=== PATIENT | female | born 1975 | race Caucasian/White ===

== ENCOUNTER 2016-10-25 12:43 | Emergency (ER) | payer MEDICARE ==
[2016-10-25 12:52] VITALS: BP 119/101
[2016-10-25 14:48] LABS: ABSOLUTE LYMPHOCYTES (AUTO) 2.1 10^3/uL (0.5-4.7); ABSOLUTE MONOCYTES (AUTO) 0.5 10^3/uL (0.1-1.4); ABSOLUTE NEUT (AUTO) 6.2 10^3/uL (1.7-8.2); BASOPHILS % (AUTO) 0.5 % (0-2); EOSINOPHILS % (AUTO) 0.3 % (0-6); HEMATOCRIT 28.8 % (36.0-47.0); HEMOGLOBIN 8.4 g/dL (12.0-15.5); HGB HCT DIFFERENCE -3.6; MEAN CORPUSCULAR HEMOGLOBIN 18.6 pg (27.0-33.4); MEAN CORPUSCULAR HGB CONC 29.3 g/dL (32.0-36.0); MONOCYTES % (AUTO) 5.3 % (3-13); RED BLOOD COUNT 4.52 10^6/uL (3.72-5.28); RED CELL DISTRIBUTION WIDTH 21.4 % (11.5-14.0); SEGMENTED NEUTROPHILS % (AUTO) 69.9 % (42-78); WHITE BLOOD COUNT 8.9 10^3/uL (4.0-10.5)
[2016-10-25 14:54] LABS: AMORPHOUS SEDIMENT,URINE 2+ /HPF
[2016-10-25 15:01] LABS: ALANINE AMINOTRANSFERASE 33 U/L (9-52); ALBUMIN 4.4 g/dL (3.5-5.0); ALKALINE PHOSPHATASE 111 U/L (38-126); ANION GAP 14 (5-19); ASPARTATE AMINO TRANSFERASE 19 U/L (14-36); BILIRUBIN,DIRECT 0.3 mg/dL (0.0-0.4); BILIRUBIN,TOTAL 0.3 mg/dL (0.2-1.3); BLOOD UREA NITROGEN 14 mg/dL (7-20); CALCIUM 9.9 mg/dL (8.4-10.2); CARBON DIOXIDE 23 mmol/L (22-30); CHLORIDE 105 mmol/L (98-107); CREATININE RESULT 0.73 mg/dL (0.52-1.25); GLUCOSE 95 mg/dL (75-110); POTASSIUM 3.9 mmol/L (3.6-5.0); SODIUM 141.9 mmol/L (137-145); TOTAL PROTEIN 7.7 g/dL (6.3-8.2)
[2016-10-25 15:11] LABS: APPEARANCE,URINE TURBID; BILIRUBIN,URINE NEGATIVE (NEGATIVE); GLUCOSE, URINE NEGATIVE (NEGATIVE); KETONES,URINE TRACE mg/dL (NEGATIVE); LEUKOCYTE ESTERASE,URINE NEGATIVE (NEGATIVE); NITRITE,URINE NEGATIVE (NEGATIVE); PROTEIN,URINE NEGATIVE (NEGATIVE); URINE SPECIFIC GRAVITY 1.035
[2016-10-25 15:17] LABS: ANISOCYTOSIS 2+; HYPOCHROMASIA 2+; MICROCYTOSIS 3+; POLYCHROMASIA SLIGHT
[2016-10-25 15:18] LABS: MEAN CORPUSCULAR VOLUME 64 fl (80-97)
--- NOTE | 2016-10-25 15:29 | ER Document Report ---
ED Medical Screen (RME) - General Chief Complaint: Abdominal Pain Stated Complaint: ABDOMINAL PAIN Time Seen by Provider: 10/25/16 14:06 Mode of Arrival: Ambulatory Information source: Patient Notes: Patient states she has left lower quadrant pain. It is sharp and severe. It is constant. She states she has this pain due to an ovarian cyst that she has previously been diagnosed with. No new symptoms. No vaginal bleeding or discharge. No vomiting or diarrhea. Nothing makes the pain better or worse. The pain does radiate to her back. No dysuria urgency or frequency. TRAVEL OUTSIDE OF THE [place] IN LAST 30 DAYS: No - Related Data Allergies/Adverse Reactions: cephalexin [From Keflex] Allergy (Verified 10/25/16 12:51) Penicillins Allergy (Verified 10/25/16 12:51) sulfamethoxazole [From Bactrim] Allergy (Verified 10/25/16 12:51) tomato Allergy (Verified 10/25/16 12:51) trimethoprim [From Bactrim] Allergy (Verified 10/25/16 12:51) ziprasidone [From Geodon] Allergy (Verified 10/25/16 12:51) Past Medical History - General Information source: Patient - Social History Cigarette use (# per day): No Chew tobacco use (# tins/day): No Frequency of alcohol use: None Drug Abuse: None Family history: Reviewed & Not Pertinent Renal/ Medical History: Denies: Hx Peritoneal Dialysis Review of Systems - Review of Systems Constitutional: denies: Chills, Fever Cardiovascular: denies: Chest pain, Palpitations Respiratory: denies: Cough, Short of breath -: Yes All other systems reviewed and negative Physical Exam - Vital signs Vitals: Temp Pulse Resp BP Pulse Ox 98.0 F 102 H 18 119/101 H 100 10/25/16 12:49 10/25/16 12:49 10/25/16 12:49 10/25/16 12:49 10/25/16 12:49 Interpretation: Hypertensive - General General appearance: Appears well, Alert - HEENT Head: Normocephalic, Atraumatic Eyes: Normal Pupils: PERRL - Respiratory Respiratory status: No respiratory distress Chest status: Nontender Breath sounds: Normal Chest palpation: Normal - Cardiovascular Rhythm: Regular Heart sounds: Normal auscultation Murmur: No - Abdominal Inspection: Normal Distension: No distension Bowel sounds: Normal Tenderness: Tender Organomegaly: No organomegaly - Back Back: Normal, Nontender - Extremities General upper extremity: Normal inspection, Nontender, Normal color, Normal ROM , Normal temperature General lower extremity: Normal inspection, Nontender, Normal color, Normal ROM , Normal temperature, Normal weight bearing. No: Leslie's sign - Neurological Neuro grossly intact: Yes Cognition: Normal Orientation: AAOx4 [place] Coma Scale Eye Opening: Spontaneous [place] Coma Scale Verbal: Oriented [place] Coma Scale Motor: Obeys Commands [place] Coma Scale Total: 15 Speech: Normal Motor strength normal: LUE, RUE, LLE, RLE Sensory: Normal - Psychological Associated symptoms: Normal affect, Normal mood - Skin Skin Temperature: Warm Skin Moisture: Dry Skin Color: Normal Course - Vital Signs Vital signs: Temp Pulse Resp BP Pulse Ox 98.0 F 102 H 18 119/101 H 100 10/25/16 12:49 10/25/16 12:49 10/25/16 12:49 10/25/16 12:49 10/25/16 12:49 - Laboratory Result Diagrams: 10/25/16 14:26 10/25/16 14:26 Laboratory results interpreted by me: 10/25/16 10/25/16 12:50 14:26 Hgb 8.4 L Hct 28.8 L MCV 64 L MCH 18.6 L MCHC 29.3 L RDW 21.4 H Urine Ketones TRACE H Urine Urobilinogen 2.0 H Urine Ascorbic Acid 20 H Doctor's Discharge - Discharge Clinical Impression: Acute abdominal pain in left lower quadrant Condition: Stable Disposition: HOME, SELF-CARE Instructions: Abdominal Pain ([facility]), Oral Narcotic Medication ([facility]) Additional Instructions: Please call [facility] to arrange follow-up as soon as possible. Prescriptions: Oxycodone HCl/Acetaminophen [Percocet 5-325 mg Tablet] 1 - 2 tab PO Q4H PRN #25 tablet PRN Reason: Forms: Elevated Blood Pressure Referrals: CHRISTINE ESCOBAR MD [ACTIVE STAFF] - Follow up as needed
== END 2016-10-25 15:45 | disposition home or self-care (01) ==
LOC: ER 12:43
DX: R10.32 Left lower quadrant pain (principal); Z88.0 Allergy status to penicillin; Z88.3 Allergy status to other anti-infective agents
CPT/HCPCS: 36415; 80053; 81001; 81025; 85025; 99284

== ENCOUNTER 2017-07-27 11:29 | Emergency (ER) | payer MEDICARE ==
[2017-07-27 11:34] VITALS: BP 109/86
--- NOTE | 2017-07-27 11:41 | ER Document Report ---
ED General - General Chief Complaint: Cough Stated Complaint: COUGH/DIFFICULTY BREATHING Time Seen by Provider: 07/27/17 11:35 Notes: 42-year-old female here with 2 weeks of cough productive of white sputum congestion runny nose sore throat shortness of breath wheezing vomiting (only after coughing) and diarrhea. She has been using her pro-air inhaler which has helped with the wheezing. She visited her son in [place] and they were all 6 that she believes she contracted the illness from them. Immunizations up-to- date. She does not smoke. TRAVEL OUTSIDE OF THE [place] IN LAST 30 DAYS: No - Related Data Allergies/Adverse Reactions: cephalexin [From Keflex] Allergy (Verified 07/27/17 11:31) Penicillins Allergy (Verified 07/27/17 11:31) sulfamethoxazole [From Bactrim] Allergy (Verified 07/27/17 11:31) tomato Allergy (Verified 07/27/17 11:31) trimethoprim [From Bactrim] Allergy (Verified 07/27/17 11:31) ziprasidone [From Geodon] Allergy (Verified 07/27/17 11:31) Past Medical History - Social History Smoking Status: Unknown if Ever Smoked Family History: Reviewed & Not Pertinent Renal/ Medical History: Denies: Hx Peritoneal Dialysis Review of Systems - Review of Systems Notes: See history of present illness for pertinent positive review of systems; otherwise all review of systems have been reviewed and are negative Physical Exam - Vital signs Vitals: Temp Pulse Resp BP Pulse Ox 97.9 F 82 18 109/86 H 97 07/27/17 11:33 07/27/17 11:33 07/27/17 11:33 07/27/17 11:33 07/27/17 11:33 - Notes Notes: PHYSICAL EXAMINATION: GENERAL: Well-appearing and in no acute distress. HEAD: Atraumatic, normocephalic. EYES: Pupils equal round and reactive to light, extraocular movements intact, sclera anicteric, conjunctiva are normal. ENT: nares patent, oropharynx clear without exudates. Moist mucous membranes. No tonsillar swelling or exudates NECK: Normal range of motion, supple without lymphadenopathy LUNGS: CTAB and equal. No wheezes rales or rhonchi. HEART: Regular rate and rhythm without murmurs ABDOMEN: Soft, no tenderness. No facial grimacing/wincing upon palpation. No guarding, no rebound. EXTREMITIES: Normal range of motion, no pitting edema. No cyanosis. NEUROLOGICAL: Cranial nerves grossly intact. Normal sensory/motor exams. PSYCH: Normal mood, normal affect. SKIN: Warm, Dry, normal turgor, no rashes or lesions noted Course - Re-evaluation Re-evalutation: 07/27/17 11:40 MEDICAL DECISION MAKING: Concern for upper respiratory infection, most likely viral Prednisone/azithromycin for asthma exacerbation and presumed bronchitis Instructed patient on fever control with Tylenol and/or (if applicable) Motrin Also discussed keeping hydrated with water or Gatorade/Pedialyte Instructed follow-up PCP next day or few Patient understands and agrees to the plan of care - Vital Signs Vital signs: Temp Pulse Resp BP Pulse Ox 97.9 F 82 18 109/86 H 97 07/27/17 11:33 07/27/17 11:33 07/27/17 11:33 07/27/17 11:33 07/27/17 11:33 Discharge - Discharge Clinical Impression: Acute URI Condition: Good Disposition: HOME, SELF-CARE Additional Instructions: You were seen in the emergency department at [facility]. Finish the steroids and antibiotics for respiratory infection. Use the pro-air as needed for wheezing shortness of breath. Please followup with your primary physician in the next few days for further management/evaluation. Please return to the emergency department for worsening of symptoms or any symptom that you deem to be concerning or life-threatening. Thank you for allowing us to be part of your care. Prescriptions: Azithromycin [Zithromax 250 mg Tablet] 250 mg PO ASDIR PRN #6 tablet PRN Reason: Prednisone [Deltasone 20 mg Tablet] 3 tab PO DAILY 5 Days tablet
== END 2017-07-27 11:40 | disposition home or self-care (01) ==
LOC: ER 11:29
DX: J06.9 Acute upper respiratory infection, unspecified (principal); Z88.0 Allergy status to penicillin; Z88.3 Allergy status to other anti-infective agents
CPT/HCPCS: 99283

== ENCOUNTER 2017-08-03 20:16 | Emergency (ER) | payer MEDICARE ==
[2017-08-03] MEDS ORDERED: OXYCODONE-ACETAMINOPHEN 5-325 MG TABLET PO ONE (20:54)
--- NOTE | 2017-08-03 20:54 | ER Document Report ---
ED GI/ - General Chief Complaint: Abdominal Pain Stated Complaint: ABDOMINAL PAIN, PELVIC PAIN Time Seen by Provider: 08/03/17 20:38 Mode of Arrival: Ambulatory Information source: Patient TRAVEL OUTSIDE OF THE [place] IN LAST 30 DAYS: No - HPI Patient complains to provider of: Abdominal pain, Pelvic pain Onset: This afternoon Timing/Duration: Gradual, Constant, Persistent Quality of pain: Dull Severity at maximum: Moderate Severity in ED: Moderate Context: denies: Bad food, Lifting, Out of the country travel, , Recent trauma Location: LLQ - LESS, RLQ - MORE Vaginal bleeding (Compared to normal period): Spotting Menstrual period history: denies: Missed - Related Data Allergies/Adverse Reactions: cephalexin [From Keflex] Allergy (Verified 07/27/17 11:31) Penicillins Allergy (Verified 07/27/17 11:31) sulfamethoxazole [From Bactrim] Allergy (Verified 07/27/17 11:31) tomato Allergy (Verified 07/27/17 11:31) trimethoprim [From Bactrim] Allergy (Verified 07/27/17 11:31) ziprasidone [From Geodon] Allergy (Verified 07/27/17 11:31) Past Medical History - General Information source: Patient - Social History Smoking Status: Never Smoker Cigarette use (# per day): No Chew tobacco use (# tins/day): No Frequency of alcohol use: None Drug Abuse: None Lives with: Spouse/Significant other Family History: Reviewed & Not Pertinent Patient has suicidal ideation: No Patient has homicidal ideation: No - Past Medical History Cardiac Medical History: Reports: None Pulmonary Medical History: Reports: Hx Asthma EENT Medical History: Reports: None Neurological Medical History: Reports: None Endocrine Medical History: Reports: None Renal/ Medical History: Reports: Hx Ovarian Cysts - BILATERAL, Other - ENDOMETRIOSIS. Denies: Hx Peritoneal Dialysis Malignancy Medical History: Reports: None GI Medical History: Reports: None Musculoskeltal Medical History: Reports None Psychiatric Medical History: Reports: Hx Bipolar Disorder Past Surgical History: Reports: Hx Section, Hx Tubal Ligation Review of Systems - Review of Systems Constitutional: No symptoms reported. denies: Chills, Fever EENT: No symptoms reported Cardiovascular: No symptoms reported Respiratory: No symptoms reported Gastrointestinal: No symptoms reported Genitourinary: No symptoms reported Female Genitourinary: See HPI Musculoskeletal: No symptoms reported Skin: No symptoms reported Neurological/Psychological: No symptoms reported Physical Exam - Vital signs Vitals: Temp Pulse Resp BP Pulse Ox 98.0 F 77 18 112/88 H 99 08/03/17 20:20 08/03/17 20:20 08/03/17 20:20 08/03/17 20:20 08/03/17 20:20 Interpretation: Normal. No: Tachycardic, Tachypneic - General General appearance: Appears well, Alert In distress: None - HEENT Head: Normocephalic Eyes: Normal Conjunctiva: Normal Ears: Normal Nasal: Normal Mouth/Lips: Normal Mucous membranes: Normal - Respiratory Respiratory status: No respiratory distress - Cardiovascular Rhythm: Regular - Abdominal Inspection: Obese - Back Back: Normal - Extremities General upper extremity: Normal inspection General lower extremity: Normal inspection. No: Tender, Edema - Neurological Neuro grossly intact: Yes Cognition: Normal Orientation: AAOx4 - Psychological Associated symptoms: Normal affect, Normal mood - Skin Skin Temperature: Warm Skin Moisture: Dry Skin Color: Normal Skin Turgor: Elastic Course - Re-evaluation Re-evalutation: 08/04/17 00:06 Patient reports pain is improved. Results of imaging studies discussed. Treatment strategies discussed. - Vital Signs Vital signs: Temp Pulse Resp BP Pulse Ox 98.0 F 77 18 112/88 H 99 08/03/17 20:20 08/03/17 20:20 08/03/17 20:20 08/03/17 20:20 08/03/17 20:20 Discharge - Discharge Clinical Impression: Pelvic pain, Endometriosis Condition: Stable Disposition: HOME, SELF-CARE Instructions: Endometriosis ([facility]), Antinausea Medication ([facility]), Oral Narcotic Medication ([facility]) Additional Instructions: REST, DRINK PLENTY OF FLUIDS. MEDS DIRECTED. FOLLOW UP WITH [facility], CALL TOMORROW A.M. FOR APPT. RETURN TO E.R. IF YOU GET WORSE.
--- NOTE | 2017-08-03 22:09 | RADIOLOGY REPORT (SQ) ---
EXAM DESCRIPTION: U/S NON OB PEL LTD W/DOPPLER COMPLETED DATE/TIME: 08/03/2017 9:54 pm REASON FOR STUDY: PELVIC PAIN, H/O OVARIAN CYST, H/O ENDOMETRIOSIS COMPARISON: None. TECHNIQUE: Dynamic and static grayscale images acquired of the pelvis via transvaginal and transabdo puja approach and recorded on PACS. Additional selected color Doppler and spectral images recorded. LIMITATIONS: None. FINDINGS: UTERUS: Retroverted. Contour normal. No mass. ENDOMETRIAL STRIPE: No focal or generalized thickening. No masses. CERVIX: Small nabothian cysts. RIGHT OVARY AND DOPPLER: Ovary not visualized. LEFT OVARY AND DOPPLER: Ovary not visualized. FREE FLUID: None noted. OTHER: No other significant finding. MEASUREMENTS: UTERUS: 3.8 x 4.5 x 9.1 cm. ENDOMETRIAL STRIPE: 7 mm. RIGHT OVARY: Not visualized. LEFT OVARY: Not visualized. IMPRESSION: UNABLE TO VISUALIZE THE OVARIES DUE TO OVERLYING BOWEL GAS. UNREMARKABLE APPEARANCE OF THE UTERUS. TECHNICAL DOCUMENTATION: JOB ID: [id number] [employer]- All Rights Reserved Reading location - IP/workstation name: [email or web address]
[2017-08-03] MEDS ORDERED: CALCIUM CARBONATE 500 MG TAB.CHEW PO ONE (22:10)
[2017-08-03] MEDS ORDERED: HYDROMORPHONE HCL 2 MG TABLET PO ONE (23:17)
--- NOTE | 2017-08-03 23:33 | RADIOLOGY REPORT (SQ) ---
EXAM DESCRIPTION: CT PELVIS WITHOUT IV CONTRAST COMPLETED DATE/TME: 08/03/2017 23:08 CLINICAL HISTORY: 42 years Female, PELV. PAIN; H/O OV. CYSTS; OVARIES NON-VIS ON U/S Comparison: Ultrasound, same day Technique: No contrast. Coronal and sagittal reformat. This exam was performed according to our departmental dose-optimization program, which includes automated exposure control, adjustment of the mA and/or kV according to patient size and/or use of iterative reconstruction technique.[facility]: Dose Right [facility]: CareDose [facility]: Dose Right [facility]: Teradose 4D [facility]: DriverSide LIMITATIONS: None Findings: No free fluid. Normal appendix. CT appearance of the ovaries appear within normal limits, as queried. Unenhanced pelvic structures, and musculoskeleton appear otherwise grossly unremarkable. Impression: No acute findings.
[2017-08-04] MEDS ORDERED: ONDANSETRON ODT 4 MG TAB (6 TAB/ER DISP) PO PRN (00:09)
[2017-08-04] MEDS ORDERED: HYDROCODONE/ACETAMINOPHEN 5-325 MG (6 TAB/ER DISP) PO PRN (00:09)
[2017-08-04 00:18] VITALS: BP 110/81
== END 2017-08-04 00:17 | disposition home or self-care (01) ==
LOC: ER 20:16
DX: N80.9 Endometriosis, unspecified (principal); R10.2 Pelvic and perineal pain; R10.9 Unspecified abdominal pain; J45.909 Unspecified asthma, uncomplicated
CPT/HCPCS: 99284; 76857; 93976; 72192; A9270 ×5